=== PATIENT | female | born 2000 | race Caucasian/White ===

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

== ENCOUNTER 2024-05-10 12:37 | Emergency (ER) | payer OTHER ==
[~2024-05-10] VITALS: Ht 160 cm; Wt 105.7 kg
[2024-05-10 12:39] VITALS: O2SAT 97
[2024-05-10] MEDS ORDERED: IBUPROFEN 800 MG TABLET ONE (13:09)
[2024-05-10] MEDS: IBUPROFEN 800 MG TABLET PO ONE (13:12)
--- NOTE | 2024-05-10 14:25 | NUR ---
Patient discharged to home in stable condition. Written and verbal after care instructions given. Patient verbalizes understanding of instructions. Stressed follow up or return to ER for worsening s/s.
[2024-05-10] MEDS ORDERED: AMOX500T2 PO (14:28)
[2024-05-10] MEDS ORDERED: HYDR-3980 PO (14:28)
== END 2024-05-10 14:32 | disposition home or self-care (01) ==
LOC: ER 12:41
DX: J02.9 Acute pharyngitis, unspecified (principal); J45.909 Unspecified asthma, uncomplicated; Z20.822 Contact with and (suspected) exposure to COVID-19
CPT/HCPCS: 86403; 87070; A4606; A4663

== ENCOUNTER 2025-07-27 09:26 | Emergency (ER) | payer OTHER ==
[~2025-07-27] VITALS: Ht 160 cm; Wt 106.6 kg
[~2025-07-27 09:26] MED LIST: AMOX500T2 PO; HYDR-3980 PO
[2025-07-27 09:30] VITALS: BP 134/87
[2025-07-27] MEDS ORDERED: IBUP-1955 PO (10:22)
[2025-07-27 10:35] VITALS: BP 134/87; TEMP 98.6; O2SAT 99
== END 2025-07-27 10:35 | disposition home or self-care (01) ==
LOC: ER 09:26
DX: S90.211A Contusion of right great toe with damage to nail, initial encounter (principal); J45.909 Unspecified asthma, uncomplicated; Z88.7 Allergy status to serum and vaccine; W18.39XA Other fall on same level, initial encounter; Y93.89 Activity, other specified; Y92.89 Other specified places as the place of occurrence of the external cause; Y99.9 Unspecified external cause status
CPT/HCPCS: 73660; A4606; A4663